=== PATIENT | female | born 1970 | race Hispanic/Latino ===

== ENCOUNTER 2017-04-23 08:03 | Observation (INO) | payer OTHER ==
[2017-04-23] MEDS ORDERED: Sodium Chloride 0.9% 1,000 ML IV STA (08:27)
[2017-04-23 08:47] LABS: BASO # 0.01 K/mm3 (0.0-2.0); BASO % 0.2 % (0.0-3.0); GRAN # 5.46 (1.4-6.5); HEMOGLOBIN 12.9 gm/dL (12.0-16.0); LYMPH # 0.4 (1.2-3.4); LYMPH % 6.3 % (22.0-35.0); MEAN CELL VOLUME 91.2 fL (80.0-105.0); MEAN CORPUSCULAR HEMOGLOBIN 31.7 pg (25.0-35.0); MEAN CORPUSCULAR HGB CONC 34.8 g/dl (31.0-37.0); MEAN PLATELET VOLUME 9.7 fl (7.0-11.0); MONO # 0.3 (0.1-0.6); MONO % 5.5 % (1.0-6.0); PH,URINE 6.5 (4.7-8.0); PLATELET COUNT 174 10^3/uL (120.0-450.0); RBC 4.07 10^6/uL (3.5-6.1); RED CELL DISTRIBUTION WIDTH 13.6 % (11.5-14.5); URINE BILIRUBIN NEGATIVE (NEGATIVE); URINE BLOOD MODERATE (NEGATIVE); URINE GLUCOSE (UA) NEGATIVE (NEGATIVE); URINE LEUKOCYTE ESTERASE TRACE Leu/uL (NEGATIVE); URINE NITRATE NEGATIVE (NEGATIVE); URINE PROTEIN 100 mg/dL (<30 mg/dL); URINE UROBILINOGEN 0.2 E.U./dL (<1 E.U./dL); WHITE BLOOD COUNT 6.2 10^3/ul (4.5-11.0)
[2017-04-23 08:50] LABS: URINE APPEARANCE CLOUDY (CLEAR); URINE COLOR YELLOW (YELLOW)
[2017-04-23 08:51] LABS: HCG,QUALITATIVE URINE NEGATIVE (NEGATIVE)
--- NOTE | 2017-04-23 08:52 | ED PDOC ---
Arrival/HPI - General Chief Complaint: Abdominal Pain Time Seen by Provider: 04/23/17 08:25 Historian: Patient - History of Present Illness Narrative History of Present Illness (Text): 04/23/17 08:15 Cheryl Alarcon is a 46 year old female who presents to the emergency department complaining of diffuse abdominal pain for 4 days. Patient notes that she experiences associated loss of appetite, nausea and vomiting x1, diarrhea x1 , and slight abdominal distention. Patient was on a 10-day cruise that docked today with printed medical history indicating blood work was done and vitals were taken, results show WBC 13 and tachycardia. Patient was given IV fluids, Ceftriaxone, and painkillers on board to little relief. Patient was given 2 doses of Imodium after leaving the cruise which she took prior to arrival. Patient denies any fever, chills, chest pain, shortness of breath, urinary symptoms, back pain, neck pain, headache, dizziness, or any other complaints. Time/Duration: < week Symptom Onset: Gradual Symptom Course: Unchanged Severity Level: Mild Activities at Onset: Light Context: Home Past Medical History - Provider Review Nursing Documentation Reviewed: Yes - Travel History If Yes, travel location?: [facility] - Cardiac Hx Cardiac Disorders: No - Pulmonary Hx Respiratory Disorders: No - Neurological Hx Neurological Disorder: No - HEENT Hx HEENT Disorder: No - Renal Hx Renal Disorder: No - Endocrine/Metabolic Hx Endocrine Disorders: No - Hematological/Oncological Hx Blood Disorders: No - Integumentary Hx Dermatological Disorder: No - Musculoskeletal/Rheumatological Hx Musculoskeletal Disorders: No - Gastrointestinal Hx Gastrointestinal Disorders: No - Genitourinary/Gynecological Hx Genitourinary Disorders: No - Psychiatric Hx Psychophysiologic Disorder: Yes (ADHD) Hx Substance Use: No Family/Social History - Physician Review Nursing Documentation Reviewed: Yes Family/Social History: No Known Family HX Smoking Status: Never Smoked Hx Alcohol Use: Yes Frequency of alcohol use: Socially Hx Substance Use: No Allergies/Home Meds Allergies/Adverse Reactions: Allergies No Known Allergies Allergy (Verified 04/23/17 08:10) Home Medications: Home Meds Medication Instructions Recorded Confirmed Dextroamphetamine/Amphetamine 20 mg PO PRN PRN 04/23/17 04/23/17 [Adderall 10 mg Tablet] Review of Systems - Physician Review All systems were reviewed & negative as marked: Yes - Review of Systems Constitutional: absent: Fevers, Night Sweats Eyes: absent: Vision Changes ENT: absent: Hearing Changes Respiratory: absent: SOB Cardiovascular: absent: Chest Pain Gastrointestinal: Abdominal Pain, Diarrhea, Nausea, Vomiting, Appetite Changes Genitourinary Female: absent: Dysuria Musculoskeletal: absent: Arthralgias, Back Pain, Neck Pain Skin: absent: Rash, Pruritis Neurological: absent: Headache, Dizziness Endocrine: absent: Diaphoresis Hemo/Lymphatic: absent: Adenopathy Psychiatric: absent: Anxiety Physical Exam - Physical Exam Narrative Physical Exam (Text): Constitutional: No acute distress. Head: Normocephalic. Atraumatic. Eyes: PERRL. ENT: Moist mucous membranes. Neck: Supple. Cardiovascular: Mild tachycardia. Chest: No tenderness. Respiratory: Clear to auscultation bilaterally. GI: Lower abdominal tenderness, right worse than left. Mildly distended. Back: No CVA tenderness. Musculoskeletal: No tenderness or swelling of extremities. Skin: No rash. Neurologic: Alert, no focal deficit. Vital Signs Reviewed: Yes Vital Signs Temp Pulse Resp BP Pulse Ox 04/23/17 10:03 96 H 17 133/76 98 04/23/17 08:06 98.6 F 107 H 18 130/73 98 Temperature: Afebrile Blood Pressure: Normal Pulse: Tachycardic Respiratory Rate: Normal Appearance: Positive for: Well-Appearing, Non-Toxic, Comfortable Pain Distress: None Mental Status: Positive for: Alert and Oriented X 3 Medical Decision Making - Lab Interpretations Lab Results: 04/23/17 08:40 04/23/17 08:40 Lab Results 04/23/17 08:40: Sodium 130 L, Potassium 3.5 L, Chloride 97, Carbon Dioxide 25, Anion Gap 12, BUN 11, Creatinine 0.7, Est GFR ( Amer) > 60, Est GFR (Non- Af Amer) > 60, Random Glucose 96, Calcium 8.3 L, Total Bilirubin 0.7, AST 15, ALT 23, Alkaline Phosphatase 48, Total Protein 6.3, Albumin 3.1, Globulin 3.1, Albumin/Globulin Ratio 1.0 L, Lipase 18 L 04/23/17 08:40: Urine Color Yellow, Urine Appearance Cloudy, Urine pH 6.5, Ur Specific Nova 1.015, Urine Protein 100 H, Urine Glucose (UA) Negative, Urine Ketones >=80, Urine Blood Moderate H, Urine Nitrate Negative, Urine Bilirubin Negative, Urine Urobilinogen 0.2, Ur Leukocyte Esterase Trace H, Urine RBC 15 - 20, Urine WBC 1 - 3, Ur Epithelial Cells 4 - 5, Urine Bacteria Few, Urine HCG, Qual Negative 04/23/17 08:40: WBC 6.2, RBC 4.07, Hgb 12.9, Hct 37.1, MCV 91.2, MCH 31.7, MCHC 34.8, RDW 13.6, Plt Count 174, MPV 9.7, Gran % 88.0 H, Lymph % (Auto) 6.3 L, [place] % (Auto) 5.5, Eos % (Auto) 0.0 L, Baso % (Auto) 0.2, Gran # 5.46, Lymph # 0.4 L, [place] # 0.3, Eos # 0.0, Baso # 0.01 I have reviewed the lab results: Yes - Medication Orders Current Medication Orders: Discontinued Medications Acetaminophen (Tylenol 325mg Tab) 650 mg PO STAT STA Stop: 04/23/17 14:28 Last Admin: 04/23/17 14:34 Dose: 650 mg Re-Assess: [facility] Pain/Vitals Document 04/23/17 15:33 [facility] (Rec: 04/23/17 15:33 [id number] Pain Reassessment Is This A Pain ReAssessment? No Sodium Chloride (Sodium Chloride 0.9%) 1,000 mls @ 999 mls/hr IV .Q1H1M STA Stop: 04/23/17 09:27 Last Admin: 04/23/17 08:52 Dose: 999 mls/hr Ketorolac Tromethamine (Toradol) 30 mg IVP STAT STA Stop: 04/23/17 08:47 Last Admin: 04/23/17 09:26 Dose: 30 mg Re-Assess: [facility] Pain Assessment Document 04/23/17 10:26 [facility] (Rec: 04/23/17 14:34 [id number] Pain Reassessment Is this a pain reassessment? Yes Sleep Is patient sleeping during reassessment? No Ondansetron HCl (Zofran Inj) 4 mg IVP STAT STA Stop: 04/23/17 08:31 Last Admin: 04/23/17 09:21 Dose: 4 mg ED OBSERVATION Discharge: Yes Date of observation admission: 04/23/17 Time of observation admission: 08:47 - Observation admission statement Patient is being placed in observation because:: Impression: 46 year old female complaining of diffuse abdominal pain with associated loss of appetite, nausea, vomiting, and diarrhea for four days. Differential Diagnosis included but are not limited to: UTI vs. Gastritis vs. Appendicitis - Goals of Observation Goals of observation are:: -- Abdomen and Pelvis CT w/ contrast -- Urine Culture, HCG, and Urinalysis -- Labs -- Toradol, Zofran, and IV Fluids -- Reassess and disposition - Progress Note Progress Note: [address] 1040 In no acute distress. Pending CT. 1203 PROCEDURE: CT abdomen and pelvis dated 04/23/2017. HISTORY: abd pain, r/o appendicitis COMPARISON: None. TECHNIQUE: Contiguous axial images of the abdomen and pelvis performed in standard fashion following oral and intravenous injection of approximately 90 cc Omnipaque 350 contrast material. Additional 2 dimensional sagittal and coronal reformats provided. Radiation dose: Total exam DLP = 1010.66 mGy-cm. This CT exam was performed using one or more of the following dose reduction techniques: Automated exposure control, adjustment of the mA and/or kV according to patient size, and/or use of iterative reconstruction technique. FINDINGS: LOWER THORAX: Small right-sided effusion and minor right basilar atelectasis. Minimal atelectasis left base with questionable trace effusion. Small hiatal hernia with slight wall thickening of the distal esophagus that could be due to protrusion of gastric mucosa. Esophagitis or other intrinsic/ invasive wall lesion not excluded. Is spell spell. Heart size within range of normal. No significant pericardial effusion. LIVER: Liver is upper limits of normal size measuring nearly 18 cm in CC dimension. . There are a few tiny sub cm low-attenuation foci left lobe liver too small characterize however on may represent small hemangiomas or cysts. Followup at interval could be performed to assess stability and exclude other pathology. . GALLBLADDER AND BILE DUCTS: Gallbladder is physiologically distended. Multiple intraluminal gallbladder calculi. No gross pericholecystic fluid collections. Minimal central intrahepatic biliary ductal dilatation. No air seen within the biliary tree PANCREAS: Visualized portions of the pancreas appear grossly unremarkable. SPLEEN: Spleen exhibits normal size. No evidence of splenic mass collection or calcification. ADRENALS: There are no adrenal lesions. KIDNEYS AND URETERS: Kidneys demonstrate symmetric nephrograms. No evidence of nephrolithiasis or hydronephrosis. . There is a small approximately 9.8 mm rounded low- attenuation focus posterior aspect lower pole right kidney which exhibits Hounsfield units in the mid 40s precluding simple cyst. This could be secondary to hyperdense cyst however rounded however a very tiny slightly hyperdense focus seen along the posterior inferior margin of the hyperdense focus that could represent calcification. This could represent a complex cyst hyperdense cyst/complex cyst. Consider follow-up ultrasound for further evaluation to exclude any solid components. Follow-up CT scan at interval is also suggested to assess stability. BLADDER: Urinary bladder is physiologically distended. No evidence of intraluminal urinary bladder calculi. REPRODUCTIVE: Uterus appears unremarkable. In situ tampon. Suspect small approximately 16 mm right adnexal cyst . APPENDIX: The appendix is mildly dilated measuring approximately 10.6 mm in greatest dimension with mild wall enhancement. There are moderate infiltration changes within the adjacent mesentery. . While these changes could be reactive secondary to what may represent an enterocolitis, the possibility of concomitant acute appendicitis cannot be excluded. Clinical correlation recommended. BOWEL: Evaluation of the bowel is limited due to incomplete opacification. The stomach is incompletely distended with liquid contrast and air. Oral contrast material is present within distended proximal jejunum. . The remaining proximal small bowel moderately distended with air-fluid levels. The distal small bowel is also mildly distended. Collectively these findings likely represent an ileus. Large amount of fluid is present within the large bowel. Consider enterocolitis there is also a small amount of fluid within the lower abdomen and pelvis. . Recommend plain film radiographs in the 12 hours to assess for passage of contrast material into the large bowel and exclude obstruction high PERITONEUM: Unremarkable. No fluid collection. No free air. LYMPH NODES: Unremarkable. No enlarged lymph nodes. VASCULATURE: Unremarkable. No aortic aneurysm. The osseous structures appear intact. BONES: Minor multilevel degenerative spondylosis of the thoracic and lumbar spine. OTHER FINDINGS: None. IMPRESSION: Multiple distended contrast and fluid-filled loops of proximal and distal small bowel respectively with fluid seen throughout most of the colon. Rule out enterocolitis. There is also a mild dilatation of the appendix with minimal wall enhancement. These changes could be reactive secondary to suspected enterocolitis however the possibility of a concomitant acute appendicitis cannot be excluded. Clinical correlation recommended. Plain film radiographs in 12 hours recommended as well to confirm passage of contrast material into the colon and exclude small bowel obstruction. Small amount of abdominal ascites however no definitive free intraperitoneal air. Cholelithiasis. . Minor central intrahepatic biliary ductal dilatation. Several small low-attenuation foci scattered throughout the left lobe liver too small to characterize though could represent small hemangiomas or cysts. Followup CT scan at interval recommended to assess stability. Small low-attenuation focus lower pole right kidney of uncertain etiology. Rule out complex cyst. Follow-up ultrasound could be performed for further evaluation and exclude solid components. In addition, follow-up CT scan at interval recommended to assess stability. . The suspect small right adnexal cyst See above discussion for additional details. Findings discussed with Dr. Garcia at approximately 1:15 p.m. with written down and read back verification. Patient states she feels better. Abdomen soft and nontender on exam. Patient feels hungry. Given reading, surgery consulted, surgical endoscopist evaluated. Attending Dr. Churchill in surgery. Patient wishes to leave hospital. Likely enterocolitis, can not rule out appy or obstruction at this time. She understands and wishes to sign out against medical advice. Leaving Against Medical Advice (AMA): The patient is choosing to leave against medical advice. I have personally explained to the patient that choosing to do so may result in permanent bodily harm or . I have discussed at great length that without further evaluation and monitoring there may be unforeseen circumstances and/or deterioration causing permanent bodily harm or as a result of their choice. The patient is alert, oriented, and shows the mental capacity to make clear decisions regarding the patients health care at this time. The patient continues to wish to leave against medical advice. In light of the patients decision to leave against medical advice, follow-up has been arranged and the patient is aware of the importance to following up as instructed. The patient has been advised that they should return to the emergency room immediately if they change their mind at any time, or if their condition begins to change or worsen in any way. - Scribe Statement The provider has reviewed the documentation as recorded by the Sana Acuna Provider Scribe Attestation: All medical record entries made by the Sana were at my direction and personally dictated by me. I have reviewed the chart and agree that the record accurately reflects my personal performance of the history, physical exam, medical decision making, and the department course for this patient. I have also personally directed, reviewed, and agree with the discharge instructions and disposition. Disposition/Present on Arrival - Present on Arrival Any Indicators Present on Arrival: No History of DVT/PE: No History of Uncontrolled Diabetes: No Urinary Catheter: No History of Decub. Ulcer: No History Surgical Site Infection Following: None - Disposition Have Diagnosis and Disposition been Completed?: Yes Diagnosis: Abdominal pain Disposition: AGAINST MEDICAL ADVICE Disposition Time: 08:47 Patient Plan: Discharge Patient Problems: Current Active Problems Problem Status Onset Abdominal pain Acute Condition: STABLE
[2017-04-23 08:54] LABS: URINE RBC 15 - 20 /hpf (0-2)
[2017-04-23 08:55] LABS: URINE BACTERIA FEW (NEG)
[2017-04-23 09:02] LABS: ALBUMIN 3.1 g/dL (3.0-4.8); ALT/SGPT 23 U/L (7-56); AST/SGOT 15 U/L (15-39); BLOOD UREA NITROGEN 11 mg/dL (7-21); CALCIUM 8.3 mg/dL (8.4-10.5); GFR AFRICAN-AMERICAN > 60; GFR NON-AFRICAN AMERICAN > 60; LIPASE 18 U/L (23-300)
[2017-04-23 12:41] VITALS: TEMP 98.6
--- NOTE | 2017-04-23 13:23 | CT ---
PROCEDURE: CT abdomen and pelvis dated 04/23/2017. HISTORY: abd pain, r/o appendicitis COMPARISON: None. TECHNIQUE: Contiguous axial images of the abdomen and pelvis performed in standard fashion following oral and intravenous injection of approximately 90 cc Omnipaque 350 contrast material. Additional 2 dimensional sagittal and coronal reformats provided. Radiation dose: Total exam DLP = 1010.66 mGy-cm. This CT exam was performed using one or more of the following dose reduction techniques: Automated exposure control, adjustment of the mA and/or kV according to patient size, and/or use of iterative reconstruction technique. FINDINGS: LOWER THORAX: Small right-sided effusion and minor right basilar atelectasis. Minimal atelectasis left base with questionable trace effusion. Small hiatal hernia with slight wall thickening of the distal esophagus that could be due to protrusion of gastric mucosa. Esophagitis or other intrinsic/invasive wall lesion not excluded. Is spell spell. Heart size within range of normal. No significant pericardial effusion. LIVER: Liver is upper limits of normal size measuring nearly 18 cm in CC dimension. . There are a few tiny sub cm low-attenuation foci left lobe liver too small characterize however on may represent small hemangiomas or cysts. Followup at interval could be performed to assess stability and exclude other pathology. . GALLBLADDER AND BILE DUCTS: Gallbladder is physiologically distended. Multiple intraluminal gallbladder calculi. No gross pericholecystic fluid collections. Minimal central intrahepatic biliary ductal dilatation. No air seen within the biliary tree PANCREAS: Visualized portions of the pancreas appear grossly unremarkable. SPLEEN: Spleen exhibits normal size. No evidence of splenic mass collection or calcification. ADRENALS: There are no adrenal lesions. KIDNEYS AND URETERS: Kidneys demonstrate symmetric nephrograms. No evidence of nephrolithiasis or hydronephrosis. . There is a small approximately 9.8 mm rounded low-attenuation focus posterior aspect lower pole right kidney which exhibits Hounsfield units in the mid 40s precluding simple cyst. This could be secondary to hyperdense cyst however rounded however a very tiny slightly hyperdense focus seen along the posterior inferior margin of the hyperdense focus that could represent calcification. This could represent a complex cyst hyperdense cyst/complex cyst. Consider follow-up ultrasound for further evaluation to exclude any solid components. Follow-up CT scan at interval is also suggested to assess stability. BLADDER: Urinary bladder is physiologically distended. No evidence of intraluminal urinary bladder calculi. REPRODUCTIVE: Uterus appears unremarkable. In situ tampon. Suspect small approximately 16 mm right adnexal cyst . APPENDIX: The appendix is mildly dilated measuring approximately 10.6 mm in greatest dimension with mild wall enhancement. There are moderate infiltration changes within the adjacent mesentery. . While these changes could be reactive secondary to what may represent an enterocolitis, the possibility of concomitant acute appendicitis cannot be excluded. Clinical correlation recommended. BOWEL: Evaluation of the bowel is limited due to incomplete opacification. The stomach is incompletely distended with liquid contrast and air. Oral contrast material is present within distended proximal jejunum. . The remaining proximal small bowel moderately distended with air-fluid levels. The distal small bowel is also mildly distended. Collectively these findings likely represent an ileus. Large amount of fluid is present within the large bowel. Consider enterocolitis there is also a small amount of fluid within the lower abdomen and pelvis. . Recommend plain film radiographs in the 12 hours to assess for passage of contrast material into the large bowel and exclude obstruction high PERITONEUM: Unremarkable. No fluid collection. No free air. LYMPH NODES: Unremarkable. No enlarged lymph nodes. VASCULATURE: Unremarkable. No aortic aneurysm. The osseous structures appear intact. BONES: Minor multilevel degenerative spondylosis of the thoracic and lumbar spine. OTHER FINDINGS: None. IMPRESSION: Multiple distended contrast and fluid-filled loops of proximal and distal small bowel respectively with fluid seen throughout most of the colon. Rule out enterocolitis. There is also a mild dilatation of the appendix with minimal wall enhancement. These changes could be reactive secondary to suspected enterocolitis however the possibility of a concomitant acute appendicitis cannot be excluded. Clinical correlation recommended. Plain film radiographs in 12 hours recommended as well to confirm passage of contrast material into the colon and exclude small bowel obstruction. Small amount of abdominal ascites however no definitive free intraperitoneal air. Cholelithiasis. . Minor central intrahepatic biliary ductal dilatation. Several small low-attenuation foci scattered throughout the left lobe liver too small to characterize though could represent small hemangiomas or cysts. Followup CT scan at interval recommended to assess stability. Small low-attenuation focus lower pole right kidney of uncertain etiology. Rule out complex cyst. Follow-up ultrasound could be performed for further evaluation and exclude solid components. In addition, follow-up CT scan at interval recommended to assess stability. . The suspect small right adnexal cyst See above discussion for additional details. Findings discussed with Dr. Garcia at approximately 1:15 p.m. with written down and read back verification.
[2017-04-23 15:57] VITALS: BP 123/77; PULSE 92; RESP 18; O2SAT 97
== END 2017-04-23 15:40 | disposition home or self-care (01) ==
LOC: ED 08:03 → EROBSV 08:47
PROVIDERS: ADMIT Student in an Organized Health Care Education/Training Program; ATTEND Student in an Organized Health Care Education/Training Program
DX: R10.9 Unspecified abdominal pain (principal)
CPT/HCPCS: 74177; 80053; 81001; 83690; 84703; 85025; 87086; 96361; 96374; 96375; 99285; G0378; J1885; J2405; J7040